=== PATIENT | female | born 1970 | race Caucasian/White ===

== ENCOUNTER → 2022-03-02 | Outpatient (CLI) | payer BC ==
[~2022-03-02] MED LIST: AMITRIPTYLINE H50 MG PO; CALCIUM + VITA1 EACH PO; CENTRUM SILVER1 EAC4 PO; DOCUSATE SODIU250 MG PO; ESTRADIOL1 MG PO; ESTRADIOL42.5 GM VG; HUMIRA(CF)80 MG/0.8 SQ; HYDROCODONE-AC1 EACH PO; HYDROXYZINE HCL25 MG PO; IBUPROFEN600 MG PO; LYRICA100 MG PO; MYRBETRIQ50 MG PO; PROBIOTIC1 EACH PO; PROTONIX 40 MG40 M1 PO; PYRIDIUM200 MG PO; RESTASIS 0.05%1 EACH OU; TEMOVATE15 GM TOP; TIZANIDINE HCL4 MG PO; XYZAL5 MG PO; ZINC30 MG PO
[2022-03-02 11:39] LABS: HEMOGLOBIN 13.4 gm/dl (12.3-15.3); RED BLOOD COUNT 4.39 M/UL (4.00-5.10); WHITE BLOOD COUNT 6.3 K/UL (4.5-11.0)
== END ==
LOC: OPSV2 10:00
PROVIDERS: Obstetrics & Gynecology
DX: Z01.818 Encounter for other preprocedural examination (principal); N81.9 Female genital prolapse, unspecified
CPT/HCPCS: 71046; 81001; 85025; 93005

== ENCOUNTER 2022-03-06 05:36 | Observation (INO) | payer BC ==
[~2022-03-06] VITALS: Ht 170.2 cm; Wt 81.6 kg
[~2022-03-06 05:36] MED LIST changes: -DOCUSATE SODIU250 MG PO; -HYDROCODONE-AC1 EACH PO; -HYDROXYZINE HCL25 MG PO; -IBUPROFEN600 MG PO; -PYRIDIUM200 MG PO; -TEMOVATE15 GM TOP
[2022-03-06] MEDS ORDERED: IBUPROFEN600 MG PO (09:21)
[2022-03-06] MEDS ORDERED: HYDROCODONE-AC1 EACH PO (09:21)
[2022-03-06] MEDS ORDERED: DOCUSATE SODIU250 MG PO (09:21)
[2022-03-06] MEDS ORDERED: TEMOVATE15 GM TOP (15:14)
[2022-03-06] MEDS ORDERED: HYDROXYZINE HCL25 MG PO (15:16)
--- NOTE | 2022-03-06 17:17 | NUR ---
500 URINARY OUTPUT AFTER DEL CID CATH INSERTED.
--- NOTE | 2022-03-07 11:51 | NUR ---
reported to dr. fernandez patient low b/p and urine output. dr. fernandez will see patient on the floor
[2022-03-07] MEDS ORDERED: PYRIDIUM200 MG PO (14:18)
== END 2022-03-07 15:00 | disposition home or self-care (01) ==
LOC: OR 05:36 → M/S 12:35 → OR 12:35 → M/S 12:49
PROVIDERS: ADMIT Obstetrics & Gynecology
DX: N81.10 Cystocele, unspecified (principal); R10.2 Pelvic and perineal pain; G89.29 Other chronic pain; M62.89 Other specified disorders of muscle; N89.5 Stricture and atresia of vagina; K21.9 Gastro-esophageal reflux disease without esophagitis; Z90.710 Acquired absence of both cervix and uterus; Z79.899 Other long term (current) drug therapy; Z20.822 Contact with and (suspected) exposure to COVID-19
CPT/HCPCS: C1769; G0378; J0690; J1100; J1885; J2001; J2250; J2270; J2405; J2704; J2710; J3010; J7040; J7050; J7120